=== PATIENT | female | born 1980 | race Hispanic/Latino ===

== ENCOUNTER 2016-07-18 21:54 | Emergency (ER) | payer OTHER ==
[~2016-07-18] VITALS: Ht 160 cm; Wt 81.6 kg
--- NOTE | 2016-07-18 22:44 | ED THROAT/DENTAL COMPLAINT ---
History of Present Illness General Chief Complaint: Sore Throat, Dental Pain Stated Complaint: LEFT SIDED MOUTH PAIN X 2 DAYS Source: patient, family, old records Exam Limitations: no limitations Vital Signs & Intake/Output Vital Signs & Intake/Output Vital Signs Date Time Temp Pulse Resp B/P B/P Pulse O2 O2 Flow FiO2 Mean Ox Delivery Rate 07/19 2203 98.2 89 18 157/109 98 Room Air Allergies Coded Allergies: No Known Drug Allergies (NKDA 07/18/16) Triage Note: PT TO ED C/O LEFT SIDED UPPER WISDOM TOOTH PAIN FOR 2 DAYS. SAW DENTIST YESTERDAY AND AGAIN TODAY. STARTED AMOX YESTERDAY, WAS CHANGED TO AUGMENTIN TODAY. TOOK PERCOCET 5 MG AND 200 MG IBUPROFIN AT 2044. Triage Nurses Notes Reviewed? yes : No Patient currently breastfeeds: No HPI: Patient is to have her tooth pulled tomorrow. Patient is on antibiotics and has been taking Percocet. Patient states the pain is so bad that she cannot eat or drink anything over the past 2 days. Patient states the Percocet only helps the pain a little bit only 2 hours of pain in his back. The pain is 10 out of 10 and is throbbing in nature. There is no radiation. The pain is worsened when she opens her mouth or with cold air or cold liquids. There are no fevers or chills. There is no nausea or vomiting. Past History Travel History Traveled to [place] past 21 day No Medical History Any Pertinent Medical History? 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 No Review of Systems Review of Systems Constitutional: Reports: no symptoms. EENTM: Reports: see HPI, tooth pain. Respiratory: Reports: no symptoms. Cardiovascular: Reports: no symptoms. GI: Reports: no symptoms. Musculoskeletal: Reports: no symptoms. Neurological/Psychological: Reports: no symptoms. Immunologic/Allergic: Reports: no symptoms. Physical Exam Physical Exam General Appearance: well developed/nourished, alert, awake, anxious, moderate distress Eyes: Bilateral: PERRL, EOMI. Mouth/Throat: dental tenderness Neck: normal inspection, supple, full range of motion Cardiovascular/Respiratory: normal breath sounds, normal peripheral pulses, regular rate/rhythm, no respiratory distress Neurologic/Psych: no motor/sensory deficits, awake, alert, oriented x 3, normal gait, normal mood/affect Core Measures ACS in differential dx? No Severe Sepsis Present: No Septic Shock Present: No Progress Differential Diagnosis: carious tooth, odontogenic abscess Plan of Care: Current Medications Sig/Jaylin Start time Last Medication Dose Stop Time Status Admin Sodium Chloride 1,000 ML BOLUS ONE 07/18 2245 AC 07/18 (Normal Saline 0.9%) 07/18 1784 2306 Departure Departure Disposition: HOME OR SELF CARE Condition: Stable Clinical Impression Primary Impression: Toothache Referrals: DARRIUS RUSHING,LUIS Katz (PCP/Family) Additional Instructions: FOLLOW UP WITH YOUR DENTIST Departure Forms: Customer Survey General Discharge Information Prescriptions: Current Visit Scripts Hydromorphone HCl (Dilaudid) 1 TAB PO Q6P PRN PAIN #6 TAB
[2016-07-18] MEDS ORDERED: DILAUDID2 M1 PO (23:08)
[2016-07-18] MEDS ORDERED: AMBIEN10 M1 PO (23:43)
[2016-07-18 23:57] VITALS: BP 164/98
== END 2016-07-19 ==
LOC: ERH 21:54
DX: K08.89 Other specified disorders of teeth and supporting structures (principal)
CPT/HCPCS: 96361; 96374

== ENCOUNTER 2017-08-05 21:45 | Emergency (ER) | payer OTHER ==
[~2017-08-05 21:45] MED LIST: AMBIEN10 M1 PO; DILAUDID2 M1 PO
[2017-08-06 00:32] LABS: ABSOLUTE BASOPHIL COUNT 0.1 /CUMM (0.0-0.2); ABSOLUTE EOSINOPHIL COUNT 0 /CUMM (0.0-0.7); ABSOLUTE GRANULOCYTE CT 4.5 /CUMM (1.4-6.5); ABSOLUTE LYMPH COUNT 3.3 /CUMM (1.2-3.4); ABSOLUTE MONOCYTE COUNT 0.5 /CUMM (0.10-0.60); BASOPHIL % 0.8 % (0.0-2.0); EOSINOPHIL % 0.5 % (0-5); GRANULOCYTE % 53.8 % (42.2-75.2); HEMATOCRIT 36.3 % (37-47); MEAN CORPUSCULAR HGB 30.9 PG (27.0-31.0); MEAN CORPUSCULAR HGB CONC 34.4 G/DL (33.0-37.0); MEAN CORPUSCULAR VOLUME 89.8 FL (81.0-99.0); MEAN PLATELET VOLUME 8.2 FL (7.4-10.4); PLATELET COUNT 291 /CUMM (130-400); RBC DISTRIBUTION WIDTH 12.2 % (11.5-14.5); RED BLOOD CELL CT 4.04 /CUMM (4.20-5.40); WHITE BLOOD CELL COUNT 8.4 /CUMM (4.8-10.8)
--- NOTE | 2017-08-06 00:40 | ED GENERAL ADULT ---
History of Present Illness General Chief Complaint: General Adult Stated Complaint: R SIDED RIB/BACK PAIN RADIATING INTO ARM Source: patient Exam Limitations: no limitations Vital Signs & Intake/Output Vital Signs & Intake/Output Vital Signs Date Time Temp Pulse Resp B/P B/P Pulse O2 O2 Flow FiO2 Mean Ox Delivery Rate 08/06 0129 98.9 68 20 166/98 99 Room Air 08/06 0030 100 Room Air 08/05 2156 160/98 08/05 2153 98.0 86 17 95 Room Air ED Intake and Output 08/06 0000 08/05 1200 Intake Total Output Total Balance Patient 197 lb Weight Weight Reported by Patient Measurement Method Allergies Coded Allergies: No Known Drug Allergies (NKDA 07/18/16) Reconcile Medications Hydromorphone HCl (Dilaudid) 2 MG TABLET 1 TAB PO Q6P PRN PAIN Ibuprofen 800 MG TABLET 1 TAB PO TID PRN pain Zolpidem Tartrate (Ambien) 10 MG TABLET 1 TAB PO QPMP PRN INSOMNIA Triage Note: PT TO ED WITH C/O RIGHT RIB CAGE PAIN X 4 DAYS. STATES PAIN WORSE WITH DEEP INSPIRATION. DENIES COUGH. REPORTS MILD ASTHMA, WELL CONTROLLED. DENIES FALLING OR STRAIN TO AREA. Triage Nurses Notes Reviewed? yes Onset: Gradual Duration: day(s): Timing: recent history Injury Environment: home Severity: mild, moderate Modifying Factors: Worsens With: other (worse with deep breath). Associated Symptoms: rib cage pain : No Patient currently breastfeeds: No HPI: 37-year-old woman in prior good health presents with 6 days of right sided rib cage pain. She states that it hurts to laugh, take deep breaths, lift things. She states that she has no cough, phlegm, wheezing, fever, anterior chest pain. Her pain does not radiate. She notes that the pain is worse when she takes a deep breath. She is otherwise well Past History Travel History Traveled to [place] past 21 day No Medical History Any Pertinent Medical History? 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 No Review of Systems Review of Systems Constitutional: Denies: see HPI. Physical Exam Physical Exam General Appearance: well developed/nourished, no apparent distress, alert, comfortable Comments: Review of Systems - except as otherwise noted in HPI Review of Systems Constitutional:no symptoms. EENTM:no symptoms. Respiratory:no symptoms. Cardiovascular:no symptoms. GI:no symptoms. Genitourinary:no symptoms. Musculoskeletal:no symptoms. Skin:no symptoms. Neurological/Psychological:no symptoms. Hematologic/Endocrine:no symptoms. Immunologic/Allergic:no symptoms. All Other Systems: Reviewed and Negative Physical Exam Physical Exam General Appearance: well developed/nourished, no apparent distress Head: atraumatic, normal appearance Eyes: Bilateral: normal appearance. Ears, Nose, Throat: normal pharynx, normal ENT inspection Neck: normal inspection, supple, full range of motion Respiratory: normal breath sounds, right sided rib cage tenderness to palpation, no respiratory distress, quiet respiration, lungs clear Cardiovascular: regular rate/rhythm Gastrointestinal: normal bowel sounds, soft, non-tender, no organomegaly Back: normal inspection, normal range of motion Extremities: normal inspection, normal capillary refill, normal range of motion, no edema Neurologic/Psych: no motor/sensory deficits, awake, alert, oriented x 3 Skin: intact, normal color, warm/dry Core Measures ACS in differential dx? No CVA/TIA Diagnosis: No Sepsis Present: No Sepsis Focused Exam Completed? No Progress Differential Diagnoses I considered the following diagnoses in my evaluation of the patient: Rib cage injury versus PE versus pneumonia versus pleurisy versus other. Plan of Care: Orders Procedure Date/time Status TROPONIN LEVEL 08/05 2308 Complete LIPASE 08/05 2308 Complete HEPATIC FUNCTION PANEL 08/05 2308 Complete HUMAN BETA HCG SCREEN 08/05 230 Complete D-DIMER 08/05 2308 Complete CBC WITHOUT DIFFERENTIAL 08/058 Complete BASIC METABOLIC PANEL 08/05 2308 Complete AMYLASE 08/05 2308 Complete EKG 08/05 2246 Active Laboratory Tests 08/06/17 0015: Anion Gap 11, Estimated GFR > 60, BUN/Creatinine Ratio 22.5, Glucose 101 H, Calcium 9.0, Total Bilirubin 0.4, Direct Bilirubin 0.2, AST 20, ALT 33, Alkaline Phosphatase 62, Troponin I < 0.01, Total Protein 7.3, Albumin 4.2, Amylase 93, Lipase 134, Total Beta HCG NEGATIVE, D-Dimer High Sensitivty < 200, CBC w Diff NO MAN DIFF REQ, RBC 4.04 L, MCV 89.8, MCH 30.9, MCHC 34.4, RDW 12.2, MPV 8.2, Gran % 53.8, Lymphocytes % 39.0, Monocytes % 5.9, Eosinophils % 0.5, Basophils % 0.8, Absolute Granulocytes 4.5, Absolute Lymphocytes 3.3, Absolute Monocytes 0.5 , Absolute Eosinophils 0, Absolute Basophils 0.1 Diagnostic Imaging: Viewed by Me: Radiology Read. Discussed w/RAD: Radiology Read. CXR Impression: PATIENT: CHASITY HARKINS PRESENT AGE: 37 PATIENT ACCOUNT NO: [id number] : 81 LOCATION: [facility] ORDERING PHYSICIAN: Sean Parker MD SERVICE DATE: 08/05/17 EXAM TYPE: RAD - XRY- PORTABLE CHEST XRAY EXAMINATION: XR PORTABLE CHEST CLINICAL INFORMATION: Chest pain COMPARISON: None TECHNIQUE: Portable frontal view of the chest was obtained. FINDINGS: The lungs are clear with no focal consolidation. No evidence of pneumothorax, pulmonary edema, or pleural effusions. The cardiomediastinal silhouette is unremarkable. No acute osseous findings. IMPRESSION: No acute cardiopulmonary findings. 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 <Electronically signed in Other Vendor System> SIGNED BY: Waldo Brown MD 08/06/17133 Initial ED EKG: normal axis, normal intervals, normal p-waves, normal QRS complex, normal sinus rhythm Departure Departure Disposition: HOME OR SELF CARE Condition: Stable Clinical Impression Primary Impression: Chest wall pain Referrals: Efrain RUSHING,Marquez Katz (PCP/Family) Departure Forms: Customer Survey General Discharge Information Prescriptions: Current Visit Scripts Ibuprofen 1 TAB PO TID PRN pain #30 TAB Comments 08/06/17, 2:06am... pt with reproducible chest pain on exam, benign labs/ekg/ cxr... pt safe for discharge with ibuprofen RTC. Close follow up advised. Critical Care Note Critical Care Note Critical Care Time: non-applicable
[2017-08-06] MEDS ORDERED: IBUPROFEN800 M1 PO (01:27)
[2017-08-06 01:29] VITALS: BP 166/98
--- NOTE | 2017-08-06 01:34 | RADIOLOGY REPORT ---
EXAMINATION: XR PORTABLE CHEST CLINICAL INFORMATION: Chest pain COMPARISON: None TECHNIQUE: Portable frontal view of the chest was obtained. FINDINGS: The lungs are clear with no focal consolidation. No evidence of pneumothorax, pulmonary edema, or pleural effusions. The cardiomediastinal silhouette is unremarkable. No acute osseous findings. IMPRESSION: No acute cardiopulmonary findings.
== END 2017-08-06 02:07 ==
LOC: ERH 21:45
PROVIDERS: Pediatrics
DX: R07.89 Other chest pain (principal)
CPT/HCPCS: 71045; 93005; 93010